=== PATIENT | male | born 1965 | race Caucasian/White ===

== ENCOUNTER 2019-06-01 06:06 | Day surgery (SDC) | payer OTHER ==
[2019-05-29 16:00] VITALS: BMI 28.5
[2019-06-01 06:42] VITALS: TEMP 98.2
[2019-06-01] MEDS ORDERED: SUCCINYLCHOLINE CHLORIDE 200 MG/10 ML SYRINGE ONE (07:00)
[2019-06-01] MEDS ORDERED: MIDAZOLAM HCL 2 MG/2 ML SINGLE DOSE VIAL ONE (07:00)
[2019-06-01] MEDS ORDERED: PROPOFOL 20 ML ONE (07:00)
[2019-06-01] MEDS ORDERED: DEXAMETHASONE SOD PHOSPHATE 4 MG/1 ML VIAL ONE (07:02)
[2019-06-01] MEDS ORDERED: ONDANSETRON 4 MG/2 ML VIAL ONE (07:02)
[2019-06-01] MEDS ORDERED: LIDOCAINE HCL/PF 2% SDV 5ML VIAL ONE (07:02)
--- NOTE | 2019-06-01 07:28 | OP ---
Operative Note - Note: Operative Date: 06/01/19 Pre-Operative Diagnosis: Right medial meniscus tear Operation: Right knee arthroscopy with medial meniscectomy Post-Operative Diagnosis: Same as Pre-op Surgeon: Tacho Corbin Edge Finisher: Elizabeth Vasquez Anesthesia: General Operative Report Dictated: Yes
[2019-06-01] MEDS ORDERED: EPINEPHrine 1:1,000 1 MG/1 ML - 30ML VIAL (INJECTION) ONE (07:30)
[2019-06-01] MEDS ORDERED: BUPIVACAINE HCL/PF 2.5 MG/ML - 30 ML VIAL IJ ONE (07:30)
[2019-06-01] MEDS ORDERED: ceFAZolin SODIUM 1 GM VIAL ONE (07:54)
[2019-06-01] MEDS ORDERED: KETOROLAC TROMETHAMINE 30 MG/1 ML VIAL ONE (08:28)
[2019-06-01] MEDS ORDERED: oxyCODONE HCL 5 MG TABLET PO PRN ×2 (09:16)
[2019-06-01] MEDS ORDERED: ONDANSETRON 4 MG/2 ML VIAL IVPUSH PRN (09:16)
[2019-06-01] MEDS ORDERED: PROMETHAZINE HCL 25 MG/1 ML VIAL IVPUSH PRN (09:16)
[2019-06-01] MEDS ORDERED: oxyCODONE HCL 5 MG TABLET ONE (10:09)
[2019-06-01 10:44] VITALS: BP 114/77; PULSE 61
--- NOTE | 2019-06-01 11:34 | OP ---
DATE OF OPERATION: 06/01/2019 POSTOPERATIVE DIAGNOSIS: Right knee medial meniscal tear. POSTOPERATIVE DIAGNOSIS: Right knee medial meniscal tear, cartilage fissure medial femoral condyle. PROCEDURE: Right knee arthroscopy with partial medial meniscectomy, medial femoral condyle microfracture. SURGEON: Tacho Corbin MD INSIDE CHANNEL ACCOUNT MANAGER: Elizabeth Vasquez, physician medical assistant dermatology, whose skilled full assistance was necessary for the safe and timely performance of this procedure. ANESTHESIA: General. POSTOPERATIVE CONDITION: Stable. COMPLICATIONS: None. INDICATIONS: This is a pleasant gentleman who is experiencing medial knee pain. Despite the pain improving to some degree, it kept recurring and also was not able to return to running, and therefore, he elected to proceed with operative care. We did discuss the option of nonoperative care. Operative risks were review in detail including bleeding, infection, neurovascular injury, need for further surgery, postoperative pain and stiffness, progression of osteoarthritis. We discussed medical risks such as heart attack, stroke, DVT, PE, and . I addressed the use of perioperative antibiotic and DVT prophylaxis. I reviewed all of the patient's questions and concerns. He voiced understanding and elected to proceed. DESCRIPTION OF PROCEDURE: Patient was brought to the operating room where general anesthetic was administered. The right lower extremity was then prepped and draped in the usual sterile fashion. A preoperative dose of antibiotics was given, and the usual time-out procedure was performed. Portal sites were noted and marked out on the knee. They were injected subcutaneously with 0.25% Marcaine. An 11 blade was now used to establish the lateral portal. The arthroscope was passed into the knee. Examination of the patellofemoral joint demonstrated some mild, superficial articular wear. Passed the arthroscope into the notch demonstrated a very thick ligamentum mucosum. Medial portal was now established under spinal needle localization. The medial compartment was inspected demonstrating a transverse fissure across the anterior aspect of the medial femoral condyle. There was also a complex tear noted at the posterior horn of the meniscus. There was mild, superficial articular wear on the femoral and tibial surfaces. Utilizing the shaver as well as a straight biter, the tear was debrided down to a stable base. The fissure was probed and found to have some unstable edges. The decision was made to perform a microfracture. The microfracture awl was placed and malleted into the bone in 2 spots to allow for healing of the articular surface. The arthroscope was now passed laterally. Here, the meniscus was examined and found to be intact. It was probed and found to be stable. The articular surfaces also demonstrated only minimal articular wear. At this point, the excess fluid was withdrawn from the knee. The portals were sutured using 3-0 nylon. Sterile dressings were placed. Patient was extubated and transferred to the recovery room in stable condition. Edgar [id number]
== END 2019-06-01 10:45 | disposition home or self-care (01) ==
LOC: FASU 06:06
PROVIDERS: ATTEND Orthopaedic Surgery Sports Medicine
PROC: 0SQC4ZZ Repair Right Knee Joint, Percutaneous Endoscopic Approach (ICD-10-PCS; 2019-06-01)
PROC: 0SBC4ZZ Excision of Right Knee Joint, Percutaneous Endoscopic Approach (ICD-10-PCS; principal; 2019-06-01 08:05)
DX: S83.241A Other tear of medial meniscus, current injury, right knee, initial encounter (principal); S83.31XA Tear of articular cartilage of right knee, current, initial encounter; X58.XXXA Exposure to other specified factors, initial encounter; Y93.9 Activity, unspecified; Y92.9 Unspecified place or not applicable
CPT/HCPCS: 94760